=== PATIENT | male | born 1950 | race Two or more races ===

== ENCOUNTER 2024-11-24 09:42 | Outpatient (REF) | payer OTHER, SELFPAY ==
[2024-11-24 18:13] LABS: MANUAL DIFF FLAG NO
[2024-11-24 18:24] LABS: Basophils Percent Auto 0.5 % (0-2); Eosinophils Absolute Auto 0.1 X10*3/uL (0.0-0.4); Hematocrit 46.4 % (42.0-52.0); Imm Gran Abs Auto 0.02 X10*3/uL (0.00-0.03); Imm Gran Pct Auto 0.3 % (0.0-0.4); Lymphocytes Absolute Auto 2.7 X10*3/uL (1.2-4.9); Lymphocytes Percent Auto 40.2 % (20-40); Mean Corpuscular HGB Conc 32.3 g/dl (31.0-36.0); Mean Corpuscular Hemoglobin 27.6 pg (27.0-33.0); Mean Corpuscular Volume 85.5 fL (80.0-98.0); Mean Platelet Volume 9.1 fL (9.4-12.4); Monocytes Absolute Auto 0.6 X10*3/uL (0.1-1.2); Neutrophils Absolute Auto 3.2 x10*3/uL (2.0-8.3); Platelet Count 287 X10*3/uL (160-400); Red Blood Count 5.43 X10*6/uL (4.60-5.80); Red Cell Distribution Width 14.7 % (11.0-16.0); White Blood Count 6.6 X10*3/uL (4.8-10.8)
[2024-11-24 18:38] LABS: Alanine Aminotransferase 120 U/L (0-40); Alkaline Phosphatase 58 U/L (39-117); Anion Gap 8 (12-20); Aspartate Amino Transferase 75 U/L (5-37); Bilirubin Total 0.6 mg/dL (0.0-1.0); Blood Urea Nitrogen 10 mg/dL (9-16); Calcium 9.7 mg/dL (8.4-10.2); Carbon Dioxide 27 mmol/L (22-29); Chloride 104 mmol/L (96-108); Estimated Glomerular Filt Rate > 60; Glucose Random 94 mg/dL (60-115); Potassium 4.2 mmol/L (3.3-5.1); Sodium 135 mmol/L (135-145)
[2024-11-24 18:52] LABS: Ferritin 79 ng/mL (20-250); TSH reflex Free T4 0.55 uIU/mL (0.32-4.0)
[2024-11-24 19:06] LABS: Folate 11.7 ng/mL (> or = 4.0); Vitamin B12 764 pg/mL (200-900)
[2024-11-24 19:39] LABS: Erythrocyte Sedimentation Rate 2 MM/HR (0-15)
[2024-11-29 14:13] LABS: Vitamin D 25-OH, D2 <4 ng/mL; Vitamin D 25-OH, D3 30 ng/mL; Vitamin D 25-OH, Total 30 ng/mL (30-100)
== END 2024-11-24 09:43 | disposition home or self-care (01) ==
LOC: HO.HKASLDS 09:42
PROVIDERS: PCP Internal Medicine; Visit Provider Psychiatry & Neurology Neurology
DX: G25.2 Other specified forms of tremor (principal); R25.2 Cramp and spasm
CPT/HCPCS: 36415; 80053; 82306; 82607; 82728; 82746; 84443; 85025; 85652; 99202

== ENCOUNTER 2024-11-24 09:42 | Outpatient (AMB) | payer OTHER, SELFPAY ==
--- NOTE | 2024-11-24 09:47 | MHC.OFFVIS ---
Vital Signs 11/24/24 09:48 Height 5 ft 7 in Weight 165 lb BMI 25.8 BP 128/82 Blood Pressure Location Rt brachial Position Sitting Intake Visit Reasons: ENP: Tremor Intake Note: Patient presents for tremors Allergies No Known Allergies Allergy (Verified 11/24/24 09:49) Medication List - Last Reconciled 11/24/24 by Rosa Scott MD atorvastatin 80 mg PO DAILY budesonide-formoterol 160-4.5 mcg/actuation (Breyna) inhalation bupropion HCl XL 300 mg PO DAILY carvedilol 12.5 mg PO BID eplerenone 25 mg PO DAILY fluticasone propionate 50 mcg/actuation sprays intranasal omeprazole 20 mg PO DAILY sacubitril-valsartan 97-103 mg (Entresto) 1 tab PO BID HPI Comments Details: 74y/o Right handed male comes for evaluation of tremors and leg cramps. He reports mild intermittent tremors in the hands that does not bother him . Its started about 1-2 years and it is with action posture and rest. He also has [place] leg tremor son and off worsens with anxiety. He has a long history of leg cramps and sometime sin his hands. The leg or foot cramps can be at rest and can be painful and wake patrick up from sleep.He stretches his legs which helps .walking relieves the cramps. He describes one episode when he had a cramp and fell down.The cramps are more on his right LE He denies back or neck pain. He denies numbness or tingling. He has occasional snoring - he wakes up 2-3 times to use the bathroom has trouble getting back to sleep. He has daytime sleepiness He was diagnosed with sleep apnea many years ago but declined CPAP. and has 1-2 hr naps. Memory- has short term memory issues Sleep-no abnormal behavior Mood- anxiety , depression Speech- normal No drooling Handwriting - same Utensils- good can dress and shower gait-good [facility] Medical History Type 2 diabetes mellitus Prostate CA REBECCA (obstructive sleep apnea) Non-ischemic cardiomyopathy Heart failure with reduced ejection fraction Dyspnea Dizziness Colon polyps Chronic cough Asthma Anxiety Cramps of lower extremity Coarse tremors Surgical History H/O inguinal hernia repair Hx of colonoscopy Family History Mother HTN (hypertension) Father HTN (hypertension) Social History Alcohol intake: never Patient Tobacco Use Status: Never used Tobacco Physical Exam Vital Signs: Last Vital Signs BP 128/82 11/24/24 09:48 BMI result Body Mass Index 25.8 Const General: cooperative, healthy appearing, comfortable and anxious Nutritional Appearance: average body habitus Orientation/consciousness: patient oriented x3 Eyes Pupils: Equal, round and reactive pupils present Neuro Other: Intermittent [place] leg tremors at rest No UE tremors Tone- right UE cog wheel rigidty FFM and foot taps- normal facial expression and blink - normal speech- normal Gait- decreased arm swing on right , mild slowness General: patient oriented x3, tone normal, moves all extremities and no focal motor deficits Cranial nerves: Yes Facial sensation intact/muscles of mastication intact, Yes Equal, round and reactive pupils present, Yes Bilaterally intact EOM present, Yes Nystagmus not present, Yes Normal facial strength present, Yes Midline tongue present and Yes Symmetric palate elevation present Cognition (Neuro): normal cognition Motor exam (neuro): 5/5 motor strength present throughout Deep tendon reflexes (DTR's): Right triceps reflex intensity grade: 2+, Left triceps reflex intensity grade: 2+, Rt Biceps (C5, C6): 2+, Left biceps reflex intensity grade: 2+, Right brachioradialis reflex intensity grade: 2+, Left brachioradialis reflex intensity grade: 2+, Right patellar reflex intensity grade: 2+ and Left patellar reflex intensity grade: 2+ Coordination: [id number] test normal Assessment & Plan Assessment & Plan (1) Cramps of lower extremity: Comment: R>L ? PLMS . / paroxysmal dystonia ? parkinsonism Code(s): R25.2 - Cramp and spasm Category: Medical (2) Coarse tremors: Comment: intermittent symmetrical ? exaggerated physiological ? mood related Code(s): G25.2 - Other specified forms of tremor Category: Medical Plan No obvious signs of parkinsons today - except mild cog wheel rigidity in Right UE and decreased arm swing on Right. I will evaluate him with MRI brain Check labs - to r/o reversible causes of foot cramps i will trail him on gabapentin 100mg tid Orders: Orders Vitamin B12 and Folate Today G25.2 - Other specified forms of tremor, R25.2 - Cramp and spasm Vitamin D 25-OH (D2 and D3) Today G25.2 - Other specified forms of tremor, R25.2 - Cramp and spasm Comprehensive Met. Panel Today G25.2 - Other specified forms of tremor, R25.2 - Cramp and spasm Complete Blood Count Auto Diff Today G25.2 - Other specified forms of tremor, R25.2 - Cramp and spasm MR head/brain wo con Today G25.2 - Other specified forms of tremor, R25.2 - Cramp and spasm TSH reflex Free T4 Today G25.2 - Other specified forms of tremor, R25.2 - Cramp and spasm Ferritin Today G25.2 - Other specified forms of tremor, R25.2 - Cramp and spasm Erythrocyte Sedimentation Rate Today G25.2 - Other specified forms of tremor, R25.2 - Cramp and spasm Medications: New gabapentin 100 mg PO TID 90 caps 2RF Coding Level of Care Code New Pt Level 4 (70273) Complex EM visit Add On G2211 Diagnoses Cramps of lower extremity R25.2 Coarse tremors G25.2
[2024-11-24 09:48] VITALS: BP 128/82; BMI 25.8
== END 2024-11-24 10:37 | disposition home or self-care (01) ==
PROVIDERS: PCP Internal Medicine; Visit Provider Psychiatry & Neurology Neurology
DX: R25.2 Cramp and spasm (principal); G25.2 Other specified forms of tremor
CPT/HCPCS: 99204; G2211

== ENCOUNTER 2024-12-11 10:07 | Outpatient (REF) | payer MEDICARE, SELFPAY ==
--- NOTE | ~2024-12-11 | MR_ITS ---
EXAMINATION: MR BRAIN WITHOUT IV CONTRAST HISTORY: G25.2 - Other specified forms of tremor TECHNIQUE: Sagittal T1, and axial T1, FLAIR, T2, gradient echo, and diffusion weighted MR images of the brain were obtained. COMPARISON: None FINDINGS: There is mild prominence of the ventricular system and cortical sulci, consistent with atrophy. Nunes/white differentiation is normal. There is no mass effect or midline shift. No intra or extra-axial fluid collections are identified. There are no foci of restricted diffusion. Normal vascular flow voids are noted in the basilar and carotid arteries. There is mucosal thickening and near complete opacification of the bilateral maxillary sinuses. There is partial opacification of the bilateral ethmoid sinuses. MR/MR head/brain wo con IMPRESSION: 1. No acute intracranial abnormality. 2. Paranasal sinus disease as described. Electronically signed by: Bryant Murguia MD 12/12/2024 08:05 AM [facility]
== END 2024-12-11 10:08 | disposition home or self-care (01) ==
LOC: HO.MRI 10:07
PROVIDERS: Visit Provider Psychiatry & Neurology Neurology
DX: G25.2 Other specified forms of tremor (principal)
CPT/HCPCS: 70551

== ENCOUNTER → 2024-12-11 10:27 | Outpatient (BNV) | payer MEDICARE, SELFPAY | PROVIDERS: Visit Provider Radiology Diagnostic Radiology | DX: G25.2 Other specified forms of tremor (principal) | CPT/HCPCS: 70551 ==

== ENCOUNTER 2025-02-02 10:04 | Outpatient (AMB) | payer MEDICARE, SELFPAY ==
--- NOTE | 2025-02-02 10:16 | A.OFFVIS_ITS ---
Vital Signs 02/02/25 10:18 Height 5 ft 7 in Weight 172 lb BMI 26.9 BP 112/72 Blood Pressure Location Rt brachial Position Sitting Pulse 71 Pulse Source Pulse Oximeter Pulse Oximetry (%) 99 Oxygen Delivery Method Room Air Intake Visit Reasons: follow up Tremor Intake Note: Patient presents for follow up MRI done 12/11/24 and Labs done 11/24/24 Allergies No Known Allergies Allergy (Verified 02/02/25 10:18) HPI Comments Details: 75y/o Right handed male comes for follow up of tremors and leg cramps. He is doing well with gabapentin 100mg bid He also decreased his statin dose. No change in tremors MRI was nonfocal labs were normal History from initial visit-He reports mild intermittent tremors in the hands that does not bother him . Its started about 1-2 years and it is with action posture and rest. He also has [place] leg tremor son and off worsens with anxiety. He has a long history of leg cramps and sometime sin his hands. The leg or foot cramps can be at rest and can be painful and wake patrick up from sleep.He stretches his legs which helps .walking relieves the cramps. He describes one episode when he had a cramp and fell down.The cramps are more on his right LE He denies back or neck pain. He denies numbness or tingling. He has occasional snoring - he wakes up 2-3 times to use the bathroom has trouble getting back to sleep. He has daytime sleepiness He was diagnosed with sleep apnea many years ago but declined CPAP. and has 1-2 hr naps. Memory- has short term memory issues Sleep-no abnormal behavior Mood- anxiety , depression Speech- normal No drooling Handwriting - same Utensils- good can dress and shower gait-good [facility] Medical History Type 2 diabetes mellitus Prostate CA REBECCA (obstructive sleep apnea) Non-ischemic cardiomyopathy Heart failure with reduced ejection fraction Dyspnea Dizziness Colon polyps Chronic cough Asthma Anxiety Cramps of lower extremity Coarse tremors Surgical History H/O inguinal hernia repair Hx of colonoscopy Family History Mother HTN (hypertension) Father HTN (hypertension) Social History Alcohol intake: never Patient Tobacco Use Status: Never used Tobacco Physical Exam Vital Signs: Last Vital Signs Pulse 71 02/02/25 10:18 BP 112/72 02/02/25 10:18 Pulse Ox 99 02/02/25 10:18 Oxygen Delivery Method Room Air 02/02/25 10:18 BMI result Body Mass Index 26.9 Const General: cooperative, healthy appearing, comfortable and anxious Nutritional Appearance: average body habitus Orientation/consciousness: patient oriented x3 Eyes Pupils: Equal, round and reactive pupils present Neuro Other: No UE tremors Tone- right UE cog wheel rigidty FFM and foot taps- normal facial expression and blink - normal speech- normal Gait- decreased arm swing on right , mild slowness General: patient oriented x3, tone normal, moves all extremities and no focal motor deficits Cranial nerves: Yes Facial sensation intact/muscles of mastication intact, Yes Equal, round and reactive pupils present, Yes Bilaterally intact EOM present, Yes Nystagmus not present, Yes Normal facial strength present, Yes Midline tongue present and Yes Symmetric palate elevation present Cognition (Neuro): normal cognition Motor exam (neuro): 5/5 motor strength present throughout Coordination: [id number] test normal Assessment & Plan Assessment & Plan (1) Cramps of lower extremity: Comment: R>L ? PLMS . / paroxysmal dystonia ? parkinsonism Code(s): R25.2 - Cramp and spasm Category: Medical (2) Coarse tremors: Comment: intermittent symmetrical ? exaggerated physiological ? mood related Code(s): G25.2 - Other specified forms of tremor Category: Medical Plan No obvious signs of parkinsons today - except mild cog wheel rigidity in Right UE and decreased arm swing on Right. MRI brain Labs - normal except for mild elevation of AST and ALT He decreased his statin dose as per PCP gabapentin 100mg bid Coding Level of Care Code Est Pt Level 4 (55839) Diagnoses Cramps of lower extremity R25.2 Coarse tremors G25.2
[2025-02-02 10:18] VITALS: BP 112/72; PULSE 71; O2SAT 99; BMI 26.9
== END 2025-02-02 10:33 | disposition home or self-care (01) ==
LOC: HO.HSMS 10:05
PROVIDERS: PCP Internal Medicine; Visit Provider Psychiatry & Neurology Neurology
DX: R25.2 Cramp and spasm (principal); G25.2 Other specified forms of tremor
CPT/HCPCS: 99214

== ENCOUNTER → 2025-02-02 10:04 | Outpatient (BNVA) | payer MEDICARE, SELFPAY | PROVIDERS: PCP Internal Medicine; Visit Provider Psychiatry & Neurology Neurology | DX: G25.2 Other specified forms of tremor (principal) | CPT/HCPCS: 99212 ==